=== PATIENT | male | born 1995 | race Hispanic/Latino ===

== ENCOUNTER 2017-09-12 18:10 | Emergency (ER) | payer BC ==
[2017-09-12] MEDS ORDERED: Tdap Vaccine 0.5 ml Vial (10-64 yrs) IM ONE ×2 (20:31→20:37)
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
[2017-09-12 21:24] VITALS: BP 110/60; PULSE 72; RESP 18; TEMP 98.1
[2017-09-13 00:57] VITALS: O2SAT 97
== END 2017-09-12 21:24 | disposition home or self-care (01) ==
LOC: H.ER 18:10
DX: S01.01XA Laceration without foreign body of scalp, initial encounter (principal); V19.3XXA Pedal cyclist (driver) (passenger) injured in unspecified nontraffic accident, initial encounter; Y93.55 Activity, bike riding; Z23 Encounter for immunization